=== PATIENT | female | born 2000 | race Caucasian/White ===

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

== ENCOUNTER 2020-09-22 18:11 | Emergency (ER) | payer OTHER ==
[~2020-09-22] VITALS: Ht 152.4 cm; Wt 69.4 kg
[2020-09-22 18:51] VITALS: BP 121/67; Ht 152.4 cm; Wt 69.4 kg
== END 2020-09-22 20:32 | disposition home or self-care (01) ==
LOC: ED 18:11
DX: S16.1XXA Strain of muscle, fascia and tendon at neck level, initial encounter (principal); V49.9XXA Car occupant (driver) (passenger) injured in unspecified traffic accident, initial encounter; Y93.I9 Activity, other involving external motion; Y92.413 State road as the place of occurrence of the external cause; Y99.8 Other external cause status